=== PATIENT | female | born 1985 | race Caucasian/White ===

== ENCOUNTER 2018-06-28 15:39 | Emergency (ER) | payer OTHER, MEDICARE, MEDICAID ==
[~2018-06-28] VITALS: Ht 165.1 cm; Wt 77.1 kg
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
[2018-06-28 18:28] VITALS: BP 130/80
--- OUTSIDE RECORDS SUMMARY | 2018-06-28 19:58 | XMS REPORT | Continuity of Care Document ---
Author Author [facility] Organization [facility] Address Unknown Phone Unavailable Allergies There is no data. Medications There is no data. Problems There is no data. Procedures There is no data. Results There is no data. Encounters ACCT No. Visit Date/Time Discharge Status Pt. Type Provider Facility Loc./Unit Complaint [id number] 05/18/2018 15:39:40 05/18/2018 23:59:59 CLS Outpatient Melania Obando
--- OUTSIDE RECORDS SUMMARY | 2018-06-28 19:58 | XMS REPORT ---
Author Author Melania Obando [facility] Address [address] [place], [place] [id number] Care Team Providers Care Division Leader Name Role Phone Melania Obando PCP Allergies and Adverse Reactions Not available. Plan of Treatment Not available. Medications Not available. Problem List Not available. Vital Signs Not available. Social History Not available. History of Procedures Not available. Results Summary Not available. History Of Immunizations Not available. History of Past Illness Not available. Payers Insurance Name Company Name Plan Name Plan Number Policy Number Policy Group Number Start Date [facility] [id number] August [place] [employer] [place] [employer] [place] [id number] N/A History of Encounters Visit Date Visit Type Provider 05/18/2018 Office visit Melania Obando PRINT LINE INSPECTOR 04/25/2009 Office visit Santos Huddleston MD
--- OUTSIDE RECORDS SUMMARY | 2018-06-28 19:58 | XMS REPORT ---
Author Author Melania Obando [facility] Address [address] [place], [place] [id number] Care Team Providers Care Laundry Machine Operator Name Role Phone Melania Obando PCP Allergies and Adverse Reactions Not available. Plan of Treatment Not available. Medications Name Start Date Expiration Date SIG Comments Nexplanon 68 mg subdermal implant 05/18/2018 01/07/2013 implant 1 by subdermal route daily for 1 day Problem List Not available. Vital Signs Date Time BP-Sys(mm[Hg] BP-Sakshi(mm[Hg]) HR(bpm) RR(rpm) Temp WT HT HC BMI BSA BMI Percentile O2 Sat(%) 05/18/2018 2:51:00 PM 128 mmHg 76 mmHg 88 bpm 20 rpm 98.8 F 186.375 lbs 65 in 31.0141 kg/m 1.969 m 100 % Social History Not available. History of Procedures Not available. Results Summary Not available. History Of Immunizations Not available. 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
== END 2018-06-28 18:28 | disposition home or self-care (01) ==
LOC: ER 15:41
DX: M54.5 Low back pain (principal); M54.2 Cervicalgia; V49.50XA Passenger injured in collision with unspecified motor vehicles in traffic accident, initial encounter
CPT/HCPCS: 70450; 71045; 72125; 72128; 72131; 72170; 84703